=== PATIENT | female | born 1960 | race Caucasian/White ===

== ENCOUNTER 2021-04-02 22:04 | Emergency (ER) | payer BC, OTHER ==
[2021-04-02] MEDS ORDERED: Aspirin 81 MG Tab.Chew ONE (22:09)
--- NOTE | 2021-04-02 22:18 | EDM.PDOC ---
<Charisse Vail - Last Filed: 04/03/21 00:43> ED HPI GENERAL MEDICAL PROBLEM - General Chief Complaint: Chest Pain Stated Complaint: CENTER OF CHEST PRESSURE Time Seen by Provider: 04/02/21 22:17 - Related Data Allergies Allergy/AdvReac Type Severity Reaction Status Date / Time codeine Allergy Swelling Verified 04/02/21 22:15 nuts Allergy Hives Uncoded 04/02/21 22:15 Home Meds: Home Meds Levothyroxine [Synthroid] 50 mcg PO ACBREAKFAST 04/02/21 [History] Course - Radiology Interpretation Free Text/Narrative:: Chest xray: PROCEDURE INFORMATION: Exam: XR Chest Exam date and time: 04/02/2021 10:33 PM Age: 60 years old Clinical indication: Chest pain; Type not specified TECHNIQUE: Imaging protocol: XR of the chest. Views: 1 view. COMPARISON: CR Chest 1V Frontal 01/01/2017 8:39 AM FINDINGS: Lungs: Unremarkable. No consolidation. Pleural spaces: Unremarkable. No pleural effusion. No pneumothorax. Heart/Mediastinum: Unremarkable. No cardiomegaly. Bones/joints: Unremarkable. IMPRESSION: No acute findings. Thank you for allowing us to participate in the care of your patient. Dictated and Authenticated by: Benigno Fraga DO 04/02/2021 10:51 PM Central Time ([place] & [place]) CT Abdomen/Pelvis with contrast: PROCEDURE INFORMATION: Exam: CT Abdomen And Pelvis With Contrast Exam date and time: 04/02/2021 11:18 PM Age: 60 years old Clinical indication: Abdominal pain; Localized; Upper; Additional info: Wbc 12.6; Midepigastric/abdominal pain TECHNIQUE: Imaging protocol: Computed tomography of the abdomen and pelvis with contrast. Radiation optimization: All CT scans at this facility use at least one of these dose optimization techniques: automated exposure control; mA and/or kV adjustment per patient size (includes targeted exams where dose is matched to clinical indication); or iterative reconstruction. Contrast material: ISOVUE 300; Contrast volume: 75 ml; Contrast route: INTRAVENOUS (IV); COMPARISON: No relevant prior studies available. FINDINGS: Lungs: 4 mm right middle lobe pulmonary nodule. Liver: Normal. No mass. Gallbladder and bile ducts: There is cholelithiasis without wall thickening or pericholecystic fluid. Pancreas: Normal. No ductal dilation. Spleen: Normal. No splenomegaly. Adrenal glands: Normal. No mass. Kidneys and ureters: See "Urinary bladder" finding. Stomach and bowel: Diverticulosis without diverticulitis. Appendix: No evidence of appendicitis. Intraperitoneal space: Unremarkable. No free air. No significant fluid collection. Vasculature: Multiple calcified phleboliths are present in the pelvis. Lymph nodes: Unremarkable. No enlarged lymph nodes. Urinary bladder: Urinary bladder is mildly distended. There is mild hydronephrosis bilaterally. No obstructing lesion. Reproductive: Unremarkable as visualized. Bones/joints: Unremarkable. No acute fracture. Soft tissues: Unremarkable. IMPRESSION: 1. 4 mm right middle lobe pulmonary nodule. For patients at low risk (minimal or absent history of smoking and of other known risk factors), no routine follow-up is indicated. For patients at high risk (history of smoking or of other known risk factors), consider optional CT Chest at 12 months. (Reference: Micaela) References: Lisahonicolle H, et al. Guidelines for Management of Incidental Pulmonary Nodules Detected on CT Images: From the Fleischner Society 2017. Radiology. 2017;284(1):228-243. 2. Cholelithiasis without cholecystitis. 3. Mild bladder distention with bilateral hydronephrosis but no obstructing lesion. 4. Diverticulosis without diverticulitis. Thank you for allowing us to participate in the care of your patient. Dictated and Authenticated by: Benigno Fraga DO 04/02/2021 11:36 PM Central Time ([place] & [place]) See rad report Departure - Departure Time of Disposition: 00:43 Disposition: Home, Self-Care 01 Reason for Transfer *Q: Other Condition: Good Clinical Impression: Gallbladder attack Instructions: Cholelithiasis, [id number], Nonspecific Chest Pain, Adult, [id number], Gallbladder Eating Plan Forms: ED Department Discharge Additional Instructions: Drink plenty of fluids Follow the gallbladder eating plan Follow up with your primary care facility next week for surgical consult <Ingrid Buckley - Last Filed: 04/03/21 19:02> ED HPI GENERAL MEDICAL PROBLEM - General Source of Information: Reports: Patient, Family (), RN, RN Notes Reviewed History Limitations: Reports: No Limitations - History of Present Illness INITIAL COMMENTS - FREE TEXT/NARRATIVE: Maryann is a 60 y/o female who presents to the ED via personal vehicle with for complaints of chest pain. The patient reports the pain began abruptly approximately one hour ago and has increased in severity over that time. She characterizes the pain as sharp to her midepigastric region with radiation through her chest into her back. She reports history of one episode of similar pain for which she was diagnosed with possible gallstones; she did not partake in follow OP. She has taken one essential oil licorice tab with no alleviation of symptoms. She denies recent illness, fever, shaking chills, vomiting, dyspepsia, dysuria, hematuria, constipation, or diarrhea. The patient reports her last meal was at approximately 1700 this evening when she ate pizza. She denies tobacco, alcohol, or recreational drug use. Mid-Sternal Chest Pain Score (Numeric/FACES): 8 Past Medical History HEENT History: Reports: None Cardiovascular History: Reports: None Respiratory History: Reports: None Gastrointestinal History: Reports: None Genitourinary History: Reports: None SPARE HAND History: Reports: None Musculoskeletal History: Reports: None Neurological History: Reports: None Psychiatric History: Reports: None Endocrine/Metabolic History: Reports: None Hematologic History: Reports: None Immunologic History: Reports: None Oncologic (Cancer) History: Reports: None Dermatologic History: Reports: None - Infectious Disease History Infectious Disease History: Reports: None - Past Surgical History Head Surgeries/Procedures: Reports: None Social & Family History - Family History Family Medical History: No Pertinent Family History - Caffeine Use Caffeine Use: Reports: Coffee - Living Situation & Occupation Living situation: Reports: , with Family ED ROS GENERAL - Review of Systems Review Of Systems: Comprehensive ROS is negative, except as noted in HPI. ED EXAM, GENERAL - Physical Exam Exam: See Below Exam Limited By: No Limitations General Appearance: Alert, Mild Distress (Chest/Midepigastric pain) Eye Exam: Bilateral Eye: EOMI, Normal Inspection, PERRL (3mm) Nose: Normal Inspection, Normal Mucosa, No Blood Throat/Mouth: Normal Inspection, Normal Lips, Normal Teeth, Normal Gums, Normal Oropharynx, Normal Voice, No Airway Compromise Head: Atraumatic, Normocephalic Neck: Normal Inspection, Supple, Non-Tender, Full Range of Motion. No: Lymphadenopathy (L), Lymphadenopathy (R) Respiratory/Chest: No Respiratory Distress, Lungs Clear, Normal Breath Sounds, No Accessory Muscle Use, Chest Non-Tender Cardiovascular: Normal Peripheral Pulses, Regular Rate, Rhythm, No Edema, No Gallop, No JVD, No Murmur, No Rub Peripheral Pulses: 2+: Radial (L), Radial (R), Dorsalis Pedis (L), Dorsalis Pedis (R) GI/Abdominal: Tender (To palpation of bilateral upper quadrants), Abnormal Bowel Sounds (Hypoactive bowel sounds) (Female) Exam: Deferred Rectal (Female) Exam: Deferred Back Exam: Normal Inspection, Full Range of Motion. No: CVA Tenderness (L), CVA Tenderness (R) Extremities: Normal Inspection, Normal Range of Motion, Non-Tender, Normal Capillary Refill, No Pedal Edema Neurological: Alert, Oriented, CN II-XII Intact, Normal Cognition, Normal Gait, No Motor/Sensory Deficits Psychiatric: Normal Affect, Anxious Skin Exam: Warm, Dry, Intact, Normal Color, No Rash. No: Ecchymosis, Erythema, Jaundice, Mottled, Pallor, Petechiae #1 Interpretation EKG Date: 04/02/21 Time: 22:17 Rhythm: NSR Rate (Beats/Min): 76 [place]: Normal P-Wave: Present QRS: Normal ST-T: Normal QT: Normal PA/PQ Interval: 0.158 Comparison: No Change EKG Interpretation Comments: NSR; No evidence of acute myocardial ischemia Course - Vital Signs Last Recorded V/S: Last Vital Signs Temp 96.7 F L 04/02/21 22:16 Pulse 81 04/02/21 22:16 Resp 24 H 04/02/21 22:16 BP 126/87 04/02/21 22:16 Pulse Ox 100 04/02/21 22:16 - Orders/Labs/Meds Labs: Laboratory Tests 04/02/21 04/02/21 04/02/21 Range/Units 22:13 22:13 22:13 WBC 12.6 H (5.0-10.0) 10^3/uL RBC 4.62 (4.2-5.4) 10^6/uL Hgb 13.4 (12.0-16.0) g/dL Hct 40.2 (37.0-47.0) % MCV 87.0 (80-100) fL MCH 29.0 (27.0-34.0) pg MCHC 33.3 (33.0-35.0) g/dL Plt Count 323 (150-450) 10^3/uL Neut % (Auto) 35.8 L (42.2-75.2) % Lymph % (Auto) 53.5 H (20.5-50.1) % [place] % (Auto) 8.7 H (2-8) % Eos % (Auto) 1.7 (1.0-3.0) % Baso % (Auto) 0.3 (0.0-1.0) % Sodium 141 (136-145) mmol/L Potassium 3.6 (3.5-5.1) mmol/L Chloride 102 (98-107) mmol/L Carbon Dioxide 27 (21-32) mmol/L Anion Gap 15.6 H (7-13) mEq/L BUN 24 H (7-18) mg/dL Creatinine 0.81 (0.55-1.02) mg/dL Est Cr Clr Drug Dosing 59.88 mL/min Estimated GFR (MDRD) > 60 BUN/Creatinine Ratio 29.6 (No establ ref range) Glucose 95 (70-99) mg/dL Lactic Acid 2.5 H* (0.4-2.0) mmol/L Calcium 9.4 (8.5-10.1) mg/dL Total Bilirubin 0.4 (0.2-1.0) mg/dL AST 41 H (15-37) U/L ALT 52 (14-59) U/L Alkaline Phosphatase 84 (46-116) U/L Troponin I < 0.017 (0.000-0.056) ng/mL C-Reactive Protein 0.3 (0.0-0.9) mg/dL B-Natriuretic Peptide 10 (0-100) pg/ml Total Protein 7.5 (6.4-8.2) g/dL Albumin 4.1 (3.4-5.0) g/dL Globulin 3.4 Albumin/Globulin Ratio 1.2 Amylase 51 (25-115) U/L Lipase 113 (73-393) U/L Urine Color (YELLOW) Urine Appearance (CLEAR) Urine pH (5.0-9.0) Ur Specific [place] (1.005-1.030) Urine Protein (NEGATIVE) Urine Glucose (UA) (NEGATIVE) Urine Ketones (NEGATIVE) Urine Occult Blood (NEGATIVE) Urine Nitrite (NEGATIVE) Urine Bilirubin (NEGATIVE) Urine Urobilinogen (0.2-1.0) mg/dL Ur Leukocyte Esterase (NEGATIVE) 04/02/21 Range/Units 23:28 WBC (5.0-10.0) 10^3/uL RBC (4.2-5.4) 10^6/uL Hgb (12.0-16.0) g/dL Hct (37.0-47.0) % MCV (80-100) fL MCH (27.0-34.0) pg MCHC (33.0-35.0) g/dL Plt Count (150-450) 10^3/uL Neut % (Auto) (42.2-75.2) % Lymph % (Auto) (20.5-50.1) % [place] % (Auto) (2-8) % Eos % (Auto) (1.0-3.0) % Baso % (Auto) (0.0-1.0) % Sodium (136-145) mmol/L Potassium (3.5-5.1) mmol/L Chloride (98-107) mmol/L Carbon Dioxide (21-32) mmol/L Anion Gap (7-13) mEq/L BUN (7-18) mg/dL Creatinine (0.55-1.02) mg/dL Est Cr Clr Drug Dosing mL/min Estimated GFR (MDRD) BUN/Creatinine Ratio (No establ ref range) Glucose (70-99) mg/dL Lactic Acid (0.4-2.0) mmol/L Calcium (8.5-10.1) mg/dL Total Bilirubin (0.2-1.0) mg/dL AST (15-37) U/L ALT (14-59) U/L Alkaline Phosphatase (46-116) U/L Troponin I (0.000-0.056) ng/mL C-Reactive Protein (0.0-0.9) mg/dL B-Natriuretic Peptide (0-100) pg/ml Total Protein (6.4-8.2) g/dL Albumin (3.4-5.0) g/dL Globulin Albumin/Globulin Ratio Amylase (25-115) U/L Lipase (73-393) U/L Urine Color Light yellow (YELLOW) Urine Appearance Clear (CLEAR) Urine pH 7.0 (5.0-9.0) Ur Specific [place] 1.015 (1.005-1.030) Urine Protein Negative (NEGATIVE) Urine Glucose (UA) Negative (NEGATIVE) Urine Ketones Negative (NEGATIVE) Urine Occult Blood Negative (NEGATIVE) Urine Nitrite Negative (NEGATIVE) Urine Bilirubin Negative (NEGATIVE) Urine Urobilinogen 0.2 (0.2-1.0) mg/dL Ur Leukocyte Esterase Negative (NEGATIVE) Meds: Medications Discontinued Medications Generic Name Dose Route Start Last Admin Trade Name Sandipq PRN Reason Stop Dose Admin Al Hydroxide/Mg Hydroxide 30 ml 04/02/21 22:31 04/02/21 22:46 Gi Cocktail Oral Solution 30 Ml PO 04/02/21 22:32 30 ml ONETIME ONE Administration Aspirin Confirm 04/02/21 22:09 04/02/21 23:06 Aspirin 81 Mg Tab.Chew Administered 04/02/21 22:10 Not Given Dose 324 mg .ROUTE .STK-MED ONE Aspirin 324 mg 04/02/21 22:39 04/02/21 22:16 Aspirin 81 Mg Tab.Chew PO 04/02/21 22:40 324 mg ONETIME ONE Administration Sodium Chloride 1,000 mls @ 999 mls/hr 04/02/21 22:55 04/02/21 23:34 Normal Saline IV 04/02/21 23:55 999 mls/hr .BOLUS ONE Administration Iopamidol 100 ml 04/02/21 23:29 04/02/21 23:30 Iopamidol 612 Mg/Ml 100 Ml Bottle IVPUSH 04/02/21 23:30 75 ml ONETIME ONE Administration - Re-Assessments/Exams Free Text/Narrative Re-Assessment/Exam: 04/02/21 Care transferred to [facility] Torres at 2300
[2021-04-02 22:25] VITALS: BP 126/87; PULSE 81
[2021-04-02] MEDS ORDERED: GI Cocktail Oral Solution 30 ML PO ONE (22:31)
[2021-04-02] MEDS ORDERED: Aspirin 81 MG Tab.Chew PO ONE (22:39)
[2021-04-02 22:40] LABS: ANION GAP 15.6 mEq/L (7-13); CHLORIDE,CL 102 mmol/L (98-107); SODIUM,NA 141 mmol/L (136-145)
--- NOTE | 2021-04-02 22:51 | CR ---
PROCEDURE INFORMATION: Exam: XR Chest Exam date and time: 04/02/2021 10:33 PM Age: 60 years old Clinical indication: Chest pain; Type not specified TECHNIQUE: Imaging protocol: XR of the chest. Views: 1 view. COMPARISON: CR Chest 1V Frontal 01/01/2017 8:39 AM FINDINGS: Lungs: Unremarkable. No consolidation. Pleural spaces: Unremarkable. No pleural effusion. No pneumothorax. Heart/Mediastinum: Unremarkable. No cardiomegaly. Bones/joints: Unremarkable. IMPRESSION: No acute findings.
[2021-04-02] MEDS ORDERED: Sodium Chloride 0.9% 1,000 ML IV ONE (22:55)
[2021-04-02] MEDS ORDERED: Iopamidol 612 MG/ML 100 ML Bottle IVPUSH ONE (23:29)
--- NOTE | 2021-04-02 23:36 | CT ---
PROCEDURE INFORMATION: Exam: CT Abdomen And Pelvis With Contrast Exam date and time: 04/02/2021 11:18 PM Age: 60 years old Clinical indication: Abdominal pain; Localized; Upper; Additional info: Wbc 12.6; Midepigastric/abdominal pain TECHNIQUE: Imaging protocol: Computed tomography of the abdomen and pelvis with contrast. Radiation optimization: All CT scans at this facility use at least one of these dose optimization techniques: automated exposure control; mA and/or kV adjustment per patient size (includes targeted exams where dose is matched to clinical indication); or iterative reconstruction. Contrast material: ISOVUE 300; Contrast volume: 75 ml; Contrast route: INTRAVENOUS (IV); COMPARISON: No relevant prior studies available. FINDINGS: Lungs: 4 mm right middle lobe pulmonary nodule. Liver: Normal. No mass. Gallbladder and bile ducts: There is cholelithiasis without wall thickening or pericholecystic fluid. Pancreas: Normal. No ductal dilation. Spleen: Normal. No splenomegaly. Adrenal glands: Normal. No mass. Kidneys and ureters: See "Urinary bladder" finding. Stomach and bowel: Diverticulosis without diverticulitis. Appendix: No evidence of appendicitis. Intraperitoneal space: Unremarkable. No free air. No significant fluid collection. Vasculature: Multiple calcified phleboliths are present in the pelvis. Lymph nodes: Unremarkable. No enlarged lymph nodes. Urinary bladder: Urinary bladder is mildly distended. There is mild hydronephrosis bilaterally. No obstructing lesion. Reproductive: Unremarkable as visualized. Bones/joints: Unremarkable. No acute fracture. Soft tissues: Unremarkable. IMPRESSION: 1. 4 mm right middle lobe pulmonary nodule. For patients at low risk (minimal or absent history of smoking and of other known risk factors), no routine follow-up is indicated. For patients at high risk (history of smoking or of other known risk factors), consider optional CT Chest at 12 months. (Reference: Micaela) References: Micaela Pathak, et al. Guidelines for Management of Incidental Pulmonary Nodules Detected on CT Images: From the Fleischner Society 2017. Radiology. 2017;284(1):228-243. 2. Cholelithiasis without cholecystitis. 3. Mild bladder distention with bilateral hydronephrosis but no obstructing lesion. 4. Diverticulosis without diverticulitis.
== END 2021-04-03 01:04 | disposition home or self-care (01) ==
LOC: DL.ED 22:04
DX: K82.8 Other specified diseases of gallbladder (principal); Z88.5 Allergy status to narcotic agent; Z91.018 Allergy to other foods; Z79.899 Other long term (current) drug therapy
CPT/HCPCS: 36415; 71045; 74177; 80053; 81003; 82150; 83605; 83690; 83880; 84484; 85025; 86140; 93005; 93010; 99283; 99285-25; A9270-GY; J7030; Q9967

== ENCOUNTER 2021-04-04 08:51 | Emergency (ER) | payer BC ==
[2021-04-04 09:03] VITALS: BP 116/69; PULSE 80
--- NOTE | 2021-04-04 09:11 | EDM.PDOC ---
ED HPI GENERAL MEDICAL PROBLEM - General Chief Complaint: Abdominal Pain Stated Complaint: ABDOMINAL PAIN Time Seen by Provider: 04/04/21 09:09 Source of Information: Reports: Patient, Old Records, RN, RN Notes Reviewed History Limitations: Reports: No Limitations - History of Present Illness INITIAL COMMENTS - FREE TEXT/NARRATIVE: Pt presents to ER with c/o sudden onset of abdominal pain and nausea at 0800HRS this morning, shortly after eating oatmeal for breakfast. The pain is described as a deep crampy ache located at the epigastric and RUQ regions. Denies emesis, diarrhea, fever, chills, chest pain, or urinary symptoms. Pt states she was seen here on 04/02/21 with similar symptoms at which time she had a negative chest pain work up because the pain was radiating into her lower chest. At the ER visit on April 02 she states she had a CT and was found to have gallstones. She has a follow up appointment this coming week with Dr. Felicity Leal for recheck and possible referral to a surgeon. Review of the 04/02/21 ER record reveals pt also had B/L hydronephrosis without any sign of obstructive uropathy. Duration: Intermittent, Recurring Location: Reports: Abdomen Quality: Reports: Same as Previous Episode Severity: Severe Improves with: Reports: None Worsens with: Reports: Eating Associated Symptoms: Reports: No Other Symptoms abdominal Pain Score (Numeric/FACES): 8 - Related Data Allergies Allergy/AdvReac Type Severity Reaction Status Date / Time codeine Allergy Swelling Verified 04/04/21 09:12 nuts Allergy Hives Uncoded 04/02/21 22:15 Home Meds: Home Meds Levothyroxine [Synthroid] 50 mcg PO ACBREAKFAST 04/02/21 [History] Past Medical History HEENT History: Reports: None Cardiovascular History: Reports: None Respiratory History: Reports: None Gastrointestinal History: Reports: Cholelithiasis Genitourinary History: Reports: Hydronephrosis [employer] History: Reports: None Musculoskeletal History: Reports: None Neurological History: Reports: None Psychiatric History: Reports: None Endocrine/Metabolic History: Reports: None Hematologic History: Reports: None Immunologic History: Reports: None Oncologic (Cancer) History: Reports: None Dermatologic History: Reports: None - Infectious Disease History Infectious Disease History: Reports: None - Past Surgical History Head Surgeries/Procedures: Reports: None Social & Family History - Family History Family Medical History: No Pertinent Family History - Caffeine Use Caffeine Use: Reports: Coffee - Living Situation & Occupation Living situation: Reports: , with Family ED ROS GENERAL - Review of Systems Review Of Systems: Comprehensive ROS is negative, except as noted in HPI. ED EXAM, GI/ABD - Physical Exam Exam: See Below Exam Limited By: No Limitations General Appearance: Alert, WD/WN, No Apparent Distress. No: Active Emesis Eyes: Bilateral: Normal Appearance (no scleral icterus) Nose: Normal Inspection Throat/Mouth: Normal Lips, Normal Voice, No Airway Compromise Head: Atraumatic, Normocephalic Neck: Normal Inspection, Full Range of Motion Respiratory/Chest: No Respiratory Distress, Lungs Clear, Normal Breath Sounds, No Accessory Muscle Use, Chest Non-Tender Cardiovascular: Regular Rate, Rhythm GI/Abdominal Exam: Normal Bowel Sounds, Soft, No Organomegaly, No Distention, No Abnormal Bruit, No Mass, Tender (Epigastric and RUQ). No: Guarding, Rigid, Rebound Back Exam: Normal Inspection, Full Range of Motion. No: CVA Tenderness (L), CVA Tenderness (R), Vertebral Tenderness Extremities: Normal Inspection Neurological: Alert, Oriented, Normal Gait, No Motor/Sensory Deficits Psychiatric: Normal Affect, Normal Mood Skin Exam: Warm, Dry, Intact, Normal Color, No Rash Course - Vital Signs Last Recorded V/S: Last Vital Signs Temp 96.6 F L 04/04/21 09:02 Pulse 80 04/04/21 09:02 Resp 20 04/04/21 09:02 BP 116/69 04/04/21 09:02 Pulse Ox 99 04/04/21 09:02 - Orders/Labs/Meds Orders: Active Orders 24 hr Category Date Time Status Peripheral IV Care [RC] . DIRECTED Care 04/04/21 09:16 Active UA RFX SIENNA AND CULT IF INDIC [URIN] Stat Lab 04/04/21 09:16 Ordered Sodium Chloride 0.9% [Saline Flush] Med 04/04/21 09:15 Active 10 ml FLUSH ASDIRECTED PRN Peripheral IV Insertion Adult [OM.PC] Stat Oth 04/04/21 09:16 Ordered Medication Orders Sodium Chloride (Sodium Chloride 0.9% 10 Ml Syringe) 10 ml FLUSH ASDIRECTED PRN PRN Reason: Keep Vein Open Last Admin: 04/04/21 09:33 Dose: 10 ml Documented by: EMILY Labs: Laboratory Tests 04/04/21 04/04/21 Range/Units 09:23 09:23 WBC 8.0 (5.0-10.0) 10^3/uL RBC 4.71 (4.2-5.4) 10^6/uL Hgb 13.7 (12.0-16.0) g/dL Hct 41.0 (37.0-47.0) % MCV 87.0 (80-100) fL MCH 29.1 (27.0-34.0) pg MCHC 33.4 (33.0-35.0) g/dL Plt Count 312 (150-450) 10^3/uL Neut % (Auto) 48.6 (42.2-75.2) % Lymph % (Auto) 39.4 (20.5-50.1) % [place] % (Auto) 8.5 H (2-8) % Eos % (Auto) 2.9 (1.0-3.0) % Baso % (Auto) 0.6 (0.0-1.0) % Sodium 137 (136-145) mmol/L Potassium 4.5 (3.5-5.1) mmol/L Chloride 100 (98-107) mmol/L Carbon Dioxide 28 (21-32) mmol/L Anion Gap 13.5 H (7-13) mEq/L BUN 16 (7-18) mg/dL Creatinine 0.77 (0.55-1.02) mg/dL Est Cr Clr Drug Dosing 62.99 mL/min Estimated GFR (MDRD) > 60 BUN/Creatinine Ratio 20.8 (No establ ref range) Glucose 98 (70-99) mg/dL Calcium 8.9 (8.5-10.1) mg/dL Total Bilirubin 0.6 (0.2-1.0) mg/dL AST 71 H (15-37) U/L ALT 101 H (14-59) U/L Alkaline Phosphatase 120 H (46-116) U/L Total Protein 7.3 (6.4-8.2) g/dL Albumin 4.0 (3.4-5.0) g/dL Globulin 3.3 Albumin/Globulin Ratio 1.2 Amylase 48 (25-115) U/L Lipase 104 (73-393) U/L Meds: Medications Generic Name Dose Route Start Last Admin Trade Name Freq PRN Reason Stop Dose Admin Sodium Chloride 10 ml 04/04/21 09:15 04/04/21 09:33 Sodium Chloride 0.9% 10 Ml Syringe FLUSH 10 ml ASDIRECTED PRN Administration Keep Vein Open Discontinued Medications Generic Name Dose Route Start Last Admin Trade Name Freq PRN Reason Stop Dose Admin Famotidine 20 mg 04/04/21 09:15 04/04/21 09:38 Famotidine 20 Mg/2 Ml Sdv IVPUSH 04/04/21 09:16 20 mg ONETIME ONE Administration Hydromorphone HCl 1 mg 04/04/21 09:15 04/04/21 09:43 Hydromorphone 1 Mg/Ml Syringe IVPUSH 04/04/21 09:16 1 mg ONETIME ONE Administration Sodium Chloride 1,000 mls @ 999 mls/hr 04/04/21 09:16 04/04/21 09:33 Normal Saline IV 04/04/21 10:16 999 mls/hr .BOLUS ONE Administration Ondansetron HCl 4 mg 04/04/21 09:15 04/04/21 09:35 Ondansetron 4 Mg/2 Ml Sdv IV 04/04/21 09:16 4 mg ONETIME ONE Administration - Radiology Interpretation Free Text/Narrative:: CT Abd/Pelvis report from 04/02/21 reviewed. Departure - Departure Time of Disposition: 10:28 Disposition: Home, Self-Care 01 Condition: Good Clinical Impression: Biliary colic Abdominal pain Qualifiers: Abdominal location: upper abdomen, unspecified Qualified Code(s): R10.10 - Upper abdominal pain, unspecified - Discharge Information *PRESCRIPTION DRUG MONITORING PROGRAM REVIEWED*: No *COPY OF PRESCRIPTION DRUG MONITORING REPORT IN PATIENT MALVIN: No Instructions: Biliary Colic, Adult, Abdominal Pain, Adult Forms: ED Department Discharge Additional Instructions: Rx: [place] 5mg/325mg Rx: Zofran 4mg Follow up in clinic Tuesday as scheduled. Ask your doctor to review the CT report from 04/02/21 at your clinic visit. Sepsis Event Note (ED) - Evaluation Sepsis Screening Result: No Definite Risk - Focused Exam Vital Signs: Vital Signs Temp Pulse Resp BP Pulse Ox 04/04/21 09:02 96.6 F L 80 20 116/69 99 - My Orders Last 24 Hours: My Active Orders 04/04/21 09:15 Sodium Chloride 0.9% [Saline Flush] 10 ml FLUSH ASDIRECTED PRN 04/04/21 09:16 Peripheral IV Care [RC] . DIRECTED UA RFX SIENNA AND CULT IF INDIC [URIN] Stat Peripheral IV Insertion Adult [OM.PC] Stat - Assessment/Plan Last 24 Hours: My Active Orders 04/04/21 09:15 Sodium Chloride 0.9% [Saline Flush] 10 ml FLUSH ASDIRECTED PRN 04/04/21 09:16 Peripheral IV Care [RC] . DIRECTED UA RFX SIENNA AND CULT IF INDIC [URIN] Stat Peripheral IV Insertion Adult [OM.PC] Stat
[2021-04-04] MEDS ORDERED: HYDROmorphone 1 MG/ML Syringe IVPUSH ONE (09:15)
[2021-04-04] MEDS ORDERED: Ondansetron 4 MG/2 ML SDV IV ONE (09:15)
[2021-04-04] MEDS ORDERED: Sodium Chloride 0.9% 10 ML Syringe FLUSH PRN (09:15)
[2021-04-04] MEDS ORDERED: Famotidine 20 MG/2 ML SDV IVPUSH ONE (09:15)
[2021-04-04] MEDS ORDERED: Sodium Chloride 0.9% 1,000 ML IV ONE (09:16)
[2021-04-04 09:49] LABS: ANION GAP 13.5 mEq/L (7-13); CHLORIDE,CL 100 mmol/L (98-107); SODIUM,NA 137 mmol/L (136-145)
== END 2021-04-04 10:49 | disposition home or self-care (01) ==
LOC: DL.ED 08:51
DX: K80.50 Calculus of bile duct without cholangitis or cholecystitis without obstruction (principal); Z88.5 Allergy status to narcotic agent; Z91.018 Allergy to other foods; Z79.899 Other long term (current) drug therapy
CPT/HCPCS: 36415; 80053; 82150; 83690; 85025; 96374; 96375; 99284; 99284-25; J1170; J2405; J3490; J7030

== ENCOUNTER 2022-05-27 19:46 | Emergency (ER) | payer BC ==
[2022-05-27 20:35] VITALS: BP 133/102; PULSE 90
[2022-05-27] MEDS ORDERED: HYDROmorphone 0.5 MG/0.5 ML Syringe IVPUSH ONE ×2 (21:31→23:37)
[2022-05-27 21:52] LABS: ANION GAP 10.9 mEq/L (7-13)
[2022-05-27] MEDS ORDERED: Iopamidol 612 MG/ML 100 ML Bottle IVPUSH ONE (22:03)
[2022-05-27] MEDS ORDERED: Ondansetron 4 MG/2 ML SDV IVPUSH ONE (23:37)
== END 2022-05-28 00:20 | disposition home or self-care (01) ==
LOC: DL.ED 19:46
DX: K59.00 Constipation, unspecified (principal); Z88.5 Allergy status to narcotic agent; Z91.018 Allergy to other foods
CPT/HCPCS: 36415; 74177; 80053; 80143; 81003; 82150; 83690; 83735; 85025; 96374; 96375; 96376; 99284; J1170; J2405; Q9967

== ENCOUNTER 2024-05-21 16:04 | Emergency (ER) | payer BC ==
[2024-05-21 16:20] VITALS: BP 138/85; PULSE 74
[2024-05-21] MEDS: Albuterol 6.7 GM Inhaler INH PRN (16:32)
== END 2024-05-21 17:10 | disposition home or self-care (01) ==
LOC: DL.ED 16:04
DX: J98.01 Acute bronchospasm (principal); T78.40XA Allergy, unspecified, initial encounter; Z88.5 Allergy status to narcotic agent; Z91.018 Allergy to other foods; Z90.49 Acquired absence of other specified parts of digestive tract
CPT/HCPCS: 99283; A9270